=== PATIENT | female | born 1990 | race Two or more races ===

== ENCOUNTER 2021-07-11 15:19 | Outpatient (CLI) | payer OTHER | END 2021-07-11 15:30 | disposition home or self-care (01) | LOC: PPH VACUNA 15:19 | PROVIDERS: ATTEND Emergency Medicine Pediatric Emergency Medicine | DX: Z23 Encounter for immunization (principal) ==

== ENCOUNTER 2021-08-01 09:00 | Outpatient (CLI) | payer OTHER | END 2021-08-01 09:15 | disposition home or self-care (01) | LOC: PPH VACUNA 09:00 | PROVIDERS: ATTEND Emergency Medicine Pediatric Emergency Medicine | DX: Z23 Encounter for immunization (principal) ==